=== PATIENT | male | born 1970 | race Caucasian/White ===

== ENCOUNTER → 2023-11-22 13:24 | Outpatient (REF) | payer OTHER, SELFPAY | LOC: RAD 13:24 | PROVIDERS: ATTENDING PHYSICIAN Nurse Practitioner | DX: R10.32 Left lower quadrant pain (principal) | CPT/HCPCS: 74177; Q9967 ==

== ENCOUNTER → 2023-12-26 06:33 | Day surgery (SDC) | payer OTHER, SELFPAY | LOC: GI 06:33 | PROVIDERS: ATTENDING PHYSICIAN Internal Medicine Gastroenterology | DX: Z12.11 Encounter for screening for malignant neoplasm of colon (principal); K64.0 First degree hemorrhoids; D12.7 Benign neoplasm of rectosigmoid junction | CPT/HCPCS: 45385; 88305 ==

== ENCOUNTER 2024-08-06 06:21 | Day surgery (SDC) | payer BC, SELFPAY | END 2024-08-06 12:46 | disposition home or self-care (01) | LOC: GI 06:21 | PROVIDERS: ATTENDING PHYSICIAN Internal Medicine Gastroenterology | DX: Z12.11 Encounter for screening for malignant neoplasm of colon (principal); Z86.0100 Personal history of colon polyps, unspecified; K64.0 First degree hemorrhoids; D12.3 Benign neoplasm of transverse colon | CPT/HCPCS: 45380; 88305 ==

== ENCOUNTER 2025-05-21 12:00 | Inpatient (IN) | payer BC, SELFPAY ==
[2025-05-19] VITALS (11 sets, daily range): BP systolic 108–135; BP diastolic 75–93; BMI 26.9
[2025-05-19 09:52] LABS: Hematocrit 45.8 % (39.0-52.0); Hemoglobin 16.5 g/dL (13.0-18.0); Mean Corp Hgb Conc. 36.0 g/dL (33.0-37.0); Mean Corpuscular Volume 88.1 fL (80.0-94.0); Nucleated Red Blood Cells % 0 % (-); Platelet Count 286 10^3/uL (130-400); Red Cell Dist. Width 12.9 % (11.5-14.5)
[2025-05-19 10:11] LABS: ALT (SGPT) 12 U/L (0-50); AST (SGOT) 17 U/L (17-59); Albumin 4.9 g/dl (3.5-5.0); Alkaline Phosphatase 49 U/L (38-126); Blood Urea Nitrogen 16 mg/dl (9-20); Calcium 10.2 mg/dl (8.4-10.2); Carbon Dioxide 18 mmol/L (22-30); Chloride 112 mmol/L (98-107); Glucose 128 mg/dl (70-99); Potassium 4.6 mmol/L (3.5-5.1); Sodium 139 mmol/L (135-145); Total Protein 7.7 g/dl (6.3-8.2); eGFR > 60.00
[2025-05-19] MEDS: NSS 500 IV (12:35)
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
[2025-05-19] MEDS: XANAX 0.25 MG PO (17:33)
--- NOTE | 2025-05-19 18:08 | CM ---
CM reviewed chart and met with pt bedside in ED> lives with his , 2 story home, [address], has first floor half BA, second floor BR/full BA.
Independent in ADLs, personal care and ambulation at baseline. No DME.
Confirms prescription coverage.
OBS form reviewed and signed, copy left with pt.
No hx VN or SNF
PCO Isi Villafuerte
Pharmacy: [facility], [place]
CM will continue to follow for any discharge planning needs.
[2025-05-20] VITALS (8 sets, daily range): BP systolic 91–134; BP diastolic 71–84
[2025-05-20] MEDS: TYLENOL 650 MG PO (06:17)
[2025-05-20] MEDS: LIPITOR 10 MG PO (07:49)
[2025-05-20] MEDS: ZESTRIL 20 MG PO (07:50)
[2025-05-20 08:45] LABS: Blood Urea Nitrogen 15 mg/dl (9-20); Calcium 9.8 mg/dl (8.4-10.2); Carbon Dioxide 22 mmol/L (22-30); Chloride 110 mmol/L (98-107); Estimated Creatinine Clearance 92 ml/min; Glucose 124 mg/dl (70-99); Potassium 4.6 mmol/L (3.5-5.1); Sodium 139 mmol/L (135-145); eGFR > 60.00
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
--- NOTE | 2025-05-20 09:10 | W.PN.HOSP.TC ---
Today's Communication/Plan
-
Plan for LP
Assessment / Plan
Assessment / Plan
Physical exam:
General: Acutely ill
HEENT: Normocephalic, Atraumatic and Moist Mucous Membranes
Respiratory: Clear to Auscultation; Negative Wheezes, Rales or Rhonchi
Cardiac: Regular Rhythm and S1/S2
GI: Soft, Nontender and Nondistended
Musculoskeletal: No Clubbing, No Cyanosis and No Edema
Neuro: Awake, Alert and Oriented, no neurological deficits
Psych: Anxious
A/P:
Dizziness associated with changes in position and associated symptoms:
Differential diagnoses include idiopathic intracranial hypertension, migraine with aura, orthostatic hypotension, versus other
Seen CT scan of the head
CT and CTA of the head and neck
Unable to obtain MRI due to metallic object in the abdomen
Plan for LP
Appreciate neurology input
Borderline B12 deficiency:
Supplementation of B12
Anxiety:
Benzodiazepine if needed-required one-time dose and okay now.
Hypertension:
Continue lisinopril 20 m p.o. daily
Hyperlipidemia:
Continue atorvastatin 40 mg p.o. daily
DVT prophylaxis:
SCD
CODE STATUS:
Full code
Time spent 35-minutes
Anticipated Discharge: 24 - 48 hours
Subjective/Interval History
-
Date of Service: May 20, 2025
Patient was very anxious this morning with IV placement and required benzodiazepine. Patient continues to be symptomatic whenever he stands up including ringing in the ears, dizziness, vision abnormalities.
Objective Data
-
Labs:
Laboratory Results
05/20/25
06:52
Sodium 139
Potassium 4.6
Chloride 110 H
Carbon Dioxide 22
BUN 15
Creatinine 1.0
Glucose 124 H
Calcium 9.8
Vital Signs:
Vital Signs
Temp Pulse Resp BP Pulse Ox
98.0 F 72 14 119/72 99
05/20/25 07:00 05/20/25 07:00 05/20/25 07:00 05/20/25 07:00 05/20/25 08:00
[2025-05-20 09:30] LABS: HDL Cholesterol 31 mg/dl; LDL Cholesterol, Calculated 105 mg/dl; Very Low Density Lipoprotein 23 mg/dl (0-30)
[2025-05-20 09:59] LABS: Ferritin 149.0 ng/ml (17.9-464.0)
[2025-05-20] MEDS: VALIUM INJECTION 5 MG IV (10:18)
[2025-05-20] MEDS: LOW STRENGTH ASPIRIN 81 MG PO (10:18)
--- NOTE | 2025-05-20 10:30 | PTCARENOTE ---
Call received from cat scan that pt needed a 20 G Iv in his AC. When the IV nurse went into the room to give the pt a new IV, the pt started to have extreme anxiety, from former drug abuse, and thus IV Ativan was ordered per the MD to help calm him
down. The IV nurse ended up putting in a midline, so future IV nurses can draw blood from the midline and prevent anxiety over the blood sticks.
[2025-05-20 10:31] LABS: Folate 5.7 ng/ml (2.76-20); Vitamin B12 287 pg/ml (239-931)
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
[2025-05-20 11:11] LABS: Glycohemoglobin (HgbA1c) 6.2 % (4.0-5.6)
[2025-05-20 12:45] LABS: INR 1.11; PT 14.9 Sec (11.4-14.6)
[2025-05-20] MEDS: VITAMIN B-12 1000 MCG PO (12:56)
--- NOTE | 2025-05-20 13:58 | CM ---
CM reviewed chart, per therapy, attempted to evaluate patient, off floor for CT, pending echo and lumbar puncture. CM will continue to follow for therapy recommendations for further discharge planning.
Plan; home, watch for therapy recommendations for further recommendations
[2025-05-20] MEDS: ATIVAN 1 MG PO (14:18)
[2025-05-20 18:18] LABS: CSF Color Colorless; Red Cell Count/CSF 109 mm^3
[2025-05-20 18:19] LABS: CSF Color Colorless; CSF Tube # Clarity Clear; Red Cell Count/CSF 14 mm^3
[2025-05-20 18:23] LABS: White Cell Count/CSF 2 mm^3 (0-5)
[2025-05-20 18:25] LABS: White Blood Cell Count/CSF 1 mm^3 (0-5)
[2025-05-20] MEDS: MELATONIN 5 MG PO (21:58)
[2025-05-20] MEDS: COLACE 100 MG PO (21:58)
[2025-05-21 03:30] VITALS: BP 118/81
[2025-05-21 05:31] LABS: Hematocrit 44.9 % (39.0-52.0); Hemoglobin 16.4 g/dL (13.0-18.0); Mean Corp Hgb Conc. 36.5 g/dL (33.0-37.0); Mean Corpuscular Volume 89.8 fL (80.0-94.0); Platelet Count 287 10^3/uL (130-400); Red Cell Dist. Width 12.8 % (11.5-14.5)
[2025-05-21 06:09] LABS: Blood Urea Nitrogen 19 mg/dl (9-20); Calcium 9.8 mg/dl (8.4-10.2); Carbon Dioxide 22 mmol/L (22-30); Chloride 107 mmol/L (98-107); Estimated Creatinine Clearance 92 ml/min; Glucose 126 mg/dl (70-99); Potassium 4.6 mmol/L (3.5-5.1); Sodium 138 mmol/L (135-145); eGFR > 60.00
[2025-05-21 07:00] VITALS: BP 122/73
[2025-05-21] MEDS: LOW STRENGTH ASPIRIN 81 MG PO (08:05)
[2025-05-21] MEDS: LIPITOR 40 MG PO (08:05)
[2025-05-21] MEDS: VITAMIN B-12 1000 MCG PO (08:05)
[2025-05-21] MEDS: ZESTRIL 20 MG PO (08:05)
[2025-05-21 08:16] VITALS: BP 108/77; BP 117/80; BP 124/85; PULSE 103; PULSE 82; PULSE 83
--- NOTE | 2025-05-21 09:10 | PTCARENOTE ---
Pt's orthostatic VS done this am. When pt stood, pt stated feeling dizzy and had ringing in his ears.
--- NOTE | 2025-05-21 09:23 | W.PN.NEURO.1 ---
Addendum entered and electronically signed by Ed Henry MD 05/21/25 11:18:
Studies reviewed.
I have personally examined the patient. I reviewed and agree with the ETL BI DEVELOPER's Note.
My addenda:
Awake, alert, interactive. No acute distress.
Speech intact.
Follows 2-step requests w/o difficulty. No tremor.
Extra-ocular movements grossly intact.
Facial movements full and symmetric. Hearing intact to normal conversational volume.
Normal UE movements bilaterally.
Neck: full ROM.
Chest: no dyspnea
Heart: no JVD
Ext: (-) Clubbing, (-) Cyanosis, (-) Edema
IMPRESSIONS/RECOMMENDATIONS:
Abrupt onset of Mental fogginess, tinnitus
Differential diagnosis includes orthostatic hypotension. Lumbar puncture performed did not demonstrate evidence of intracranial hypotension and initial studies appear to be normal
Mildly elevated CSF protein may be secondary to the patient's prior history of hepatitis C and mildly elevated blood glucose
Rehabilitation evaluations
Continue to follow orthostatic blood pressures
Provide abdominal binder and encourage fluids
Continue aspirin
Continue atorvastatin
D/W patient
All questions answered.
Will continue to follow as outpatient.
Original Note:
Today's Communication / Plan
-
-continue aspirin 81 mg and atorvastatin 40 mg for secondary stroke prevention
-continue cyanocobalamin 1000 mcg daily for Vitamin B12 deficiency
-continue orthostatic vital signs BID, encourage fluid intake and abdominal binder
-follow CSF labs
-PT/OT evaluations
Neuro Assessment/Plan
Assessment
54-year-old right-handed male with past medical history of HTN, HLD, hepatitis C who has presented to the hospital on 05/19/25 with report of tinnitus, tunnel vision, and dizziness for a week.
1. CT Head 05/19/25: No acute intracranial abnormality.
2. CT Head 05/20/25: No acute intracranial abnormality.
Plan
Impression: Abrupt onset of sense of ringing in the ears, tunnel vision, and dizziness which worsens with standing.
Differential diagnosis includes CVA vs orthostatic hypotension, idiopathic intracranial hypotension has been ruled given normal ICP with lumbar puncture
-continue aspirin 81 mg and atorvastatin 40 mg for secondary stroke prevention
-continue cyanocobalamin 1000 mcg daily for Vitamin B12 deficiency
-continue orthostatic vital signs BID, encourage fluid intake and abdominal binder
-follow CSF labs
-PT/OT evaluations
All questions encouraged and answered, plan of care discussed with Dr. Henry, Dr. Escalante and patient
Subjective/Objective
Subjective Data
Date of Service: May 21, 2025
Patient states his symptoms remain unchanged. He got his LP without complications. Denies headache, dizziness. States he feels 'cloudy.'
Objective Data
Vital Signs
Temp Pulse Resp BP Pulse Ox
98.1 F 82 16 122/73 98
05/21/25 07:00 05/21/25 07:00 05/21/25 07:00 05/21/25 07:00 05/21/25 08:20
Lab Results
05/21/25 05:25
05/21/25 05:25
PT 14.9 Sec (11.4-14.6) H 05/20/25 12:23
INR 1.11 05/20/25 12:23
Sodium 138 mmol/L (135-145) 05/21/25 05:25
Potassium 4.6 mmol/L (3.5-5.1) 05/21/25 05:25
BUN 19 mg/dl (9-20) 05/21/25 05:25
Glucose 126 mg/dl (70-99) H 05/21/25 05:25
Calcium 9.8 mg/dl (8.4-10.2) 05/21/25 05:25
LDL Cholesterol, Calc 105 mg/dl 05/20/25 06:52
Vitamin B12 287 pg/ml (239-931) 05/20/25 06:52
Patient Allergies
No Known Allergies Allergy (Verified 05/19/25 09:35)
Physical Exam
-
General: No Apparent Distress, Comfortable and Older than Stated Age
Eyes: Unremarkable
HEENT: Normocephalic, Atraumatic and Anicteric
Neck: Full Range of Motion
Respiratory: No Dyspnea
Cardiac: No JVD
GI: Non-distended
Skin: Unremarkable
Extremities: No Clubbing, No Cyanosis and No Edema
Psych: Unremarkable
Extended Neurological Exam
Mood & Affect: Mood Unremarkable
Attention Span & Concentration: Awake, Alert, Interactive and No Difficulty with 2 Step Request
Memory: Unremarkable
Tremor: Hand Tremor Absent and Head Tremor Absent
Speech: Quality Unremarkable, Quantity Unremarkable and Rate of Production Unremarkable
Cranial Nerve II: Left Eye: Visual Britton Intact
Cranial Nerve II: Right Eye: Visual Britton Intact
Cranial Nerves III, IV, : Extraocular Movement: Extraocular Movement Full in all Directions
Cranial Nerve VII: Facial Symmetry: Normal Facial Symmetry
Cranial Nerve VIII: Hearing: Unremarkable Hearing to Normal Conversational Volume
Cranial Nerve XI: Shoulder Shrug: Unremarkable
Muscle Strength, Overall: Full Throughout
Muscle Bulk & Tone: Bulk Unremarkable and Tone Unremarkable
Pronator Drift: No Drift in Upper Extremities and No Drift in Lower Extremities
Coordination: Reaches for Objects without Difficulty
Data Reviewed
-
CT Head: Report Reviewed and Image Reviewed
Medical Test Reports: Report Reviewed
Orthostatic Testing: Report Reviewed
Labs: Report Reviewed
Reviewed with: Physician and Patient
Old Records: Summarized
--- NOTE | 2025-05-21 10:24 | CON.CAR ---
Addendum entered and electronically signed by Yusuf Madrid MD 05/21/25 14:24:
I saw and examined the patient.
The CHILDREN'S COUNSELOR's note was reviewed and I agree with the note.
Comment: Discussed need for ILR; would prefer to hold off and talk with .
OK to d/c if does not want
we will schedule f/u appt
Original Note:
Consultation
Consultation Request
Date/Time Consultation Requested: 05/21/2557
Date/Time Consultation Performed: 05/21/25 1015
Requesting Provider: Dr. Escalante
Performing Provider: Xochitl PEPE for Dr. Madrid
Reason for Consultation: possible stroke, request for loop recorder
Medical History
-
Chief Complaint: vision changes, ear ringing, room spinning
History of Present Illness:
54 y/o male with hypertension, dyslipidemia, and history of hepatitis C who is here for evaluation of intermittent ear ringing, tunnel vision, and dizzy/room spinning with standing since last Sunday. CT scan did not show stroke. Cannot have MRI
due to metal in body. Neurology is recommending implantable loop recorder for possible stroke, which is why we are consulted. Patient is in no distress at the time of my assessment.
Past Medical History
Past Medical History: HTN, Hypercholesterolemia and Other (as above)
Social History
Drug: Former User
Personal:
Family History
Family History: Reviewed & Not Pertinent
Allergies / Home Medications
Allergy/AdvReac Type Severity Reaction Status Date / Time
No Known Allergies Allergy Verified 05/19/25 09:35
�Medication �Instructions �Recorded �Confirmed �Type
atorvastatin 10 mg tablet 10 mg PO DAILY AT 0700 High 05/19/25 05/20/25 History
Cholesterol
lisinopril 20 mg tablet 20 mg PO DAILY Blood Pressure 05/19/25 05/19/25 History
Review of Systems
-
History Source: Patient
All other systems: Negative unless noted
Neurological: Dizzy and Other (tunnel vision, room spinning with standing)
Physical Exam
Vital Signs
Temp Pulse Resp BP Pulse Ox
98.1 F 82 16 122/73 98
05/21/25 07:00 05/21/25 07:00 05/21/25 07:00 05/21/25 07:00 05/21/25 08:20
Lab Results
05/21/25 05:25
05/21/25 05:25
Physical Exam
General: Well Developed, Well Nourished and No Apparent Distress
HEENT: Normocephalic and Anicteric
Respiratory: Clear and Non Labored Respirations
Cardiac: Regular Rhythm
Musculoskeletal: No Edema
Skin: Warm and Dry
Neuro: AO x 3
Psych: Calm
Impression / Plan
-
Vision changes, dizziness, ear ringing:
-noted with standing- orthos today are negative
-LP results pending
-per neuro, possible CVA- this diagnosis is threat to life
-tele stable- no AFIB on my review. Echo normal. Neuro recommending implantable loop recorder. Discussed with patient- he would like to discuss with his prior to proceeding.
-continue ASA and statin
HTN:
-stable
-continue medical therapy
HLD:
-LDL 105
-continue statin with increased dosing
Data Reviewed
-
EKG: Tracing Personally Visualized and interpreted (NSR)
CT Scan: Report Reviewed by me (head CT: No acute intracranial abnormality.)
Medical Tests (Nuc Med, Echo etc): Report Reviewed by me (Echo 05/20/25: Normal left ventricular size and systolic function without regional wall motion abnormality. Mildly dilated right ventricle with normal systolic function. No significant valve
disease. No source of emboli identified.)
Labs: Labs Reviewed by me
--- NOTE | 2025-05-21 10:51 | W.PN.HOSP.TC ---
Today's Communication/Plan
-
Cardiology consult. Discharge plan
Assessment / Plan
Assessment / Plan
Physical exam:
General: Well Developed, Well Nourished and No Apparent Distress
HEENT: Normocephalic, Atraumatic and Moist Mucous Membranes
Respiratory: Clear to Auscultation; Negative Wheezes, Rales or Rhonchi
Cardiac: Regular Rhythm and S1/S2
GI: Soft, Nontender and Nondistended
Musculoskeletal: No Clubbing, No Cyanosis and No Edema
Neuro: Awake, Alert and Oriented, no neurological deficit
Psych: Calm
A/P:
Dizziness and headache and tinnitus associated with changes in position:
Differential diagnoses include idiopathic intracranial hypertension, migraine with aura, orthostatic hypotension, POTS, versus other.
Discussed with neurology today and after neurological workup less clear to be in neurological region so recommended cardiology evaluation and possible outpatient powersaw supervisor implantation.
Cardiology consulted today
Discharge disposition once cleared by cardiology and patient feeling symptomatically okay to be able to function well and be discharged. Will reevaluate discharge disposition.
Prior to today:
Seen CT scan of the head
CT and CTA of the head and neck
Unable to obtain MRI due to metallic object in the abdomen
Status post LP and reviewed results
Appreciate neurology input
Borderline B12 deficiency:
Supplementation of B12
Anxiety:
Benzodiazepine if needed-required one-time dose and okay now.
Hypertension:
Continue lisinopril 20 m p.o. daily
Hyperlipidemia:
Continue atorvastatin 40 mg p.o. daily
DVT prophylaxis:
SCD
CODE STATUS:
Full code
Time spent 35-minutes
Anticipated Discharge: Today
Subjective/Interval History
-
Date of Service: May 21, 2025
Patient still having symptoms of dizziness headache and ringing of the ears I will plan standing up and change positions. No chest pain or shortness of breath.
Objective Data
-
Labs:
Laboratory Results
05/21/25
05:25
WBC 12.8 H
Hgb 16.4
Hct 44.9
Plt Count 287
Sodium 138
Potassium 4.6
Chloride 107
Carbon Dioxide 22
BUN 19
Creatinine 1.0
Glucose 126 H
Calcium 9.8
Vital Signs:
Vital Signs
Temp Pulse Resp BP Pulse Ox
98.1 F 82 16 122/73 98
05/21/25 07:00 05/21/25 07:00 05/21/25 07:00 05/21/25 07:00 05/21/25 08:20
I&O
05/20/25 05/21/25 05/22/25
06:59 06:59 06:59
Intake Total 480 / 480
Balance 480 / 480
[2025-05-21 11:23] VITALS: BP 114/72
--- NOTE | 2025-05-21 12:44 | CM ---
CM reviewed chart, patient seen bedside, reports no needs to CM upon discharge. Patient confirms transportation home when stable. CM will continue to follow for all discharge planning needs.
Plan; home no needs when stale
--- NOTE | 2025-05-21 12:52 | PTCARENOTE ---
Addendum entered by Veronica Buck RN 05/21/25 13:36:
Pt refused to wait for the wheelchair to take him to the main lobby for discharge. He ambulated himself out.
Addendum entered by Veronica Buck RN 05/21/25 13:17:
Dr. Escalante aware pt is driving himself home.
Original Note:
Pt's telemetry noted to be off. Went onto pt's room and pt sitting in the chair with sorting machine operator taken off. 'I'm going home. They can't do anything else for me. I'm not getting that thing put in.' Instructed that pt should keep telemetry
monitor still on until discharged and pt said, 'I'm okay, I'm not having any symptoms.' Pt refused to replace the tele monitor. Dr. Escalante made aware.
--- NOTE | 2025-05-21 13:04 | W.DCSUMMARY ---
Discharge Summary
Discharge Data
Date of Admission: 05/21/25
Date of Discharge: 05/21/25
Total time spent discharging patient (in min): 35
-
Pending Results: No
Hospital Course
Patient 54 years old male with history of hypertension, dyslipidemia, came into the hospital with sudden onset of dizziness, headaches, vision abnormalities, ear ringing for the last several days. Neurology consulted. Patient had workup including
CT scans, CTA of the head and neck, and LP. Most of them were unremarkable aside for some nonspecific findings. Neurology recommended cardiology for an implantable desk monitor. Patient still being symptomatic and the need for this cardiac
monitor it was need for change to inpatient. After cardiology evaluation patient changed his mind and declined inpatient cardiac monitoring. Patient actually wants to go home so we will discharge him and will have him follow-up as outpatient with
cardiology and neurology. No other events were noticed.
Discharge duration: 35 minutes
Discharge Plan
-
Patient Disposition: Home (Routine Discharge)
Discharge Diagnosis/Procedures: Dizziness. Tinnitus. Headache.
Diet: Regular
Activity: As tolerated
Blood Work: Please PCP to order CBC, BMP within 1 to 2 weeks
Referrals:
Ed Henry MD [Active, Neurology] - in two to four weeks
Yusuf Madrid MD [Active, Cardiology] - in one to two weeks
Isi Villafuerte CRNP [Family Provider, Family Practice] - in less than 1 week
Prescriptions:
New
mecobalamin (vitamin B12) [B12 Active] 1,000 mcg tablet,chewable
1,000 mcg PO DAILY Qty: 30 0RF
aspirin 81 mg capsule
81 mg PO DAILY Qty: 30 0RF
Continued
lisinopril 20 mg Tablet
20 mg PO DAILY
atorvastatin 10 mg tablet
10 mg PO DAILY AT 0700
Discharge Orders:
Discharge Patient (As Directed); Ordered 05/21/25
Ordered By: Gabe Escalante
Discharge Date and Time
Discharge Date/Time: 05/21/25 13:41
Print Language: MALAYSIAN
[2025-05-23 08:59] LABS: Lyme Disease DNA by PCR Not Detected; Lyme Source Serum
== END 2025-05-21 13:41 | disposition home or self-care (01) | DRG 154 ==
LOC: 4 WEST ACU 12:00
PROVIDERS: Emergency Medicine; Nurse Practitioner; Nurse Practitioner Family; Radiology Vascular & Interventional Radiology; ADMITTING PHYSICIAN Hospitalist; ATTENDING PHYSICIAN Hospitalist; CONSULT PHYSICIAN Internal Medicine Cardiovascular Disease; CONSULT PHYSICIAN Psychiatry & Neurology Neurology; EMERGENCY PHYSICIAN Emergency Medicine; FAMILY PHYSICIAN Nurse Practitioner Family
PROC: B01B1ZZ Fluoroscopy of Spinal Cord using Low Osmolar Contrast (ICD-10-PCS; 2025-05-20)
PROC: 009U3ZX Drainage of Spinal Canal, Percutaneous Approach, Diagnostic (ICD-10-PCS; 2025-05-20)
DX: H93.13 Tinnitus, bilateral (principal); I63.9 Cerebral infarction, unspecified; E87.20 Acidosis, unspecified; I95.1 Orthostatic hypotension; G96.810 Intracranial hypotension, unspecified; I10 Essential (primary) hypertension; F41.9 Anxiety disorder, unspecified; B18.2 Chronic viral hepatitis C; Z96.642 Presence of left artificial hip joint; Z80.1 Family history of malignant neoplasm of trachea, bronchus and lung; E78.00 Pure hypercholesterolemia, unspecified; Z79.899 Other long term (current) drug therapy
CPT/HCPCS: 62328; 70450; 70496; 70498; 71045; 74018; 80048; 80053; 80061; 82040; 82042; 82607; 82728; 82746; 82784; 82945; 83036; 83916; 84155; 84157; 84165; 84443; 85025; 85027; 85610; 87015; 87070; 87102; 87205; 87476; 88108; 89051; 92523; 92610; 93005; 93306; 97162; 97166; 99285; Q9967

== ENCOUNTER 2025-09-05 17:21 | Emergency (ER) | payer OTHER, SELFPAY ==
[2025-09-05 17:24] VITALS: BP 108/81
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
[2025-09-05] MEDS: ROXICODONE 5 MG PO (18:18)
[2025-09-05] MEDS: MOTRIN 600 MG PO (18:18)
[2025-09-05 18:43] VITALS: BP 122/85; BMI 25.5
== END 2025-09-05 19:10 | disposition home or self-care (01) ==
LOC: EMR 17:21
PROVIDERS: EMERGENCY PHYSICIAN Emergency Medicine; FAMILY PHYSICIAN Nurse Practitioner Family
DX: S22.32XA Fracture of one rib, left side, initial encounter for closed fracture (principal); W00.0XXA Fall on same level due to ice and snow, initial encounter; I10 Essential (primary) hypertension; Z86.19 Personal history of other infectious and parasitic diseases
CPT/HCPCS: 99283; 71046